=== PATIENT | male | born 1970 | race Caucasian/White ===

== ENCOUNTER 2021-05-02 19:27 | Emergency (ER) | payer OTHER, SELFPAY ==
--- NOTE | ~2021-05-02 | XR_ITS ---
EXAMINATION: XR CHEST CLINICAL INFORMATION: Covid positive COMPARISON: None TECHNIQUE: Frontal view of the chest was obtained. FINDINGS: Cardiac silhouette is normal in size. Lungs are adequately aerated. A few subtle patchy bilateral opacities are noted. No gross lobar consolidation. No pleural effusion or pneumothorax. 5 mm nodular density projecting over the left upper lung possibly represents a vessel on end, pulmonary nodule or osseous abnormality. XR/XR chest 1V IMPRESSION: -A few subtle patchy bilateral opacities are noted, most consistent with provided history of Covid. -Nonspecific 5 mm nodular density projecting over the left upper lung. Follow-up imaging recommended status post treatment to ensure improvement in lung aeration. At this time, reevaluation of the 5 mm left upper lung nodular density can be undertaken.
[2021-05-02 19:41] VITALS: BP 163/94; PULSE 64; RESP 18; TEMP 37.1; O2SAT 98; BMI 36.4
[2021-05-02 20:06] LABS: COVID-19 Test Positive (Negative)
--- NOTE | 2021-05-02 20:45 | ED.URI ---
HPI - URI/Sore Throat General Chief Complaint: Upper Respiratory Symptoms Stated Complaint: Headache/Sore throat Time Seen by Provider: 05/02/21 20:36 Source: patient Mode of arrival: ambulatory Limitations: no limitations History of Present Illness HPI Narrative: Patient history of asthma fully vaccinated against COVID in September has not received a booster dose with complaining of cough with mucopurulent phlegm for last 3 days no fever no chills feels body aches malaise today was getting better but his and daughter also sick test positive for COVID Related Data Previous Rx's Medication Instructions Recorded dexamethasone 6 mg tablet 6 mg PO DAILY #7 tab 05/02/21 (Decadron) Allergies Allergy/AdvReac Type Severity Reaction Status Date / Time Sulfa (Sulfonamide Allergy Nausea and Verified 05/02/21 19:41 Antibiotics) Vomiting Review of Systems Review of Systems: Yes all other systems are reviewed and are negative [facility] Social History Social History Advance Directives: No Physical Exam Vital Signs: Vital Signs: Last Vital Signs Temp 98.8 F 05/02/21 19:41 Pulse 64 05/02/21 19:41 Resp 18 05/02/21 19:41 BP 163/94 H 05/02/21 19:41 Pulse Ox 98 05/02/21 19:41 Body Mass Index 36.4 Appearance: Alert. Oriented X3. No acute distress. Eyes: No pallor/ icterus ENT: Pharynx normal. Oral Mucosa moist Neck: Normal inspection. Neck supple. CVS: Normal heart rate and rhythm. Pulses normal. Respiratory: No respiratory distress. Equal air entry bilateral, no wheezing/rales/rhonchi Abdomen: Soft and nontender. Bowel sounds are present, no mass palpable, no CVA tenderness Skin: Skin warm and dry. Normal skin color. Normal skin turgor. Extremities: No lower extremity edema. No calf tenderness Neuro: Oriented X 3. MDM - URI/Sore Throat Lab Data Attestation: I reviewed the patient's lab results. Labs: Lab Results 05/02/21 Range/Units 19:49 COVID-19 (AKOSUA) Positive A (Negative) COVID-19 Clin Com See Note Discharge Plan Discharge Clinical Impression: COVID-19 Patient Disposition: Home, Self-Care Instructions: COVID-19 (Coronavirus Disease 2019) (ED) Additional Instructions: You have COVID-19 infection self isolate until you get completely better Report to ER if increased shortness of breath Decadron as advised Use your inhaler as advised Prescriptions: New dexamethasone [Decadron] 6 mg tablet 6 mg PO DAILY Qty: 7 RF: 0 Stand Alone Forms: Work/School Release Discharge Date/Time: 05/02/21 21:01
[2021-05-02] MEDS: dexAMETHasone 2 MG TABLET 10 MG PO (20:48)
== END 2021-05-02 21:01 | disposition home or self-care (01) ==
PROVIDERS: Emergency Provider Internal Medicine
DX: U07.1 COVID-19 (principal)
CPT/HCPCS: 36415; 71045; 87635; 99282; 99283; J8540

== ENCOUNTER 2021-10-09 08:39 | Emergency (ER) | payer OTHER, SELFPAY ==
--- NOTE | ~2021-10-09 | XR_ITS ---
EXAMINATION: XR CHEST CLINICAL INFORMATION: Cough COMPARISON: 05/02/2021 TECHNIQUE: Frontal view of the chest was obtained. FINDINGS: Please overlie the chest. The lungs are well expanded. Bronchial wall thickening noted. There is no focal consolidation, edema, or effusion. No pneumothorax. The cardiomediastinal silhouette is within normal limits. No acute osseous abnormality. XR/XR chest 1V IMPRESSION: No dense consolidation. Bronchial wall thickening can be seen with a small airways process such as asthma or atypical/viral infection.
[2021-10-09 08:49] VITALS: BP 155/93; PULSE 70; RESP 18; TEMP 36.8; O2SAT 95; BMI 37.8
--- NOTE | 2021-10-09 08:52 | ECG_ITS ---
Test Reason : SOB Blood Pressure : / mmHG Vent. Rate : 073 BPM Atrial Rate : 073 BPM P-R Int : 140 ms QRS Dur : 096 ms QT Int : 386 ms P-R-T Axes : -08 -09 022 degrees QTc Int : 425 ms Normal sinus rhythm Normal ECG No previous ECGs available Referred By: Jeff Carter Electronically Signed By:TICO BROWNING MD
--- NOTE | 2021-10-09 09:04 | ED.GENADULT ---
HPI - General Adult General Chief complaint: Dyspnea Stated complaint: ASTHMA DIFF BREATHING Time Seen by Provider: 10/09/21 08:46 Source: patient Mode of arrival: ambulatory Limitations: no limitations History of Present Illness HPI narrative: 51-year-old male presents to ED for asthma exacerbation. Patient states history of admissions for asthma in the past but never intubation. Patient states 3 days of coughing green phlegm, chest tightness, and wheezing. Patient states mild improvement with albuterol inhaler. Patient states he ran out of his albuterol inhaler and his primary care provider sent in new albuterol inhaler prescription. Patient states he was also prescribed prednisone, but did not take it because prednisone usually caused him to gain weight. Patient denies any chest pain, leg swelling, calf pain, coughing up blood, recent long travel, recent surgery, pleuritic chest pain, or history of blood clots. Patient also admits to chills and night sweats. Related Data Previous Rx's Medication Instructions Recorded dexamethasone 6 mg tablet 6 mg PO DAILY #7 tab 05/02/21 (Decadron) Allergies Allergy/AdvReac Type Severity Reaction Status Date / Time Sulfa (Sulfonamide Allergy Nausea and Verified 10/09/21 08:55 Antibiotics) Vomiting Review of Systems Review of Systems: Asthma exacerbation. Chest tightness, coughing up green phlegm, night sweats, and chills Yes all other systems are reviewed and are negative [facility] Social History Social History Advance Directives: No Advance Directives Information Provided: No Physical Exam ED Vital Signs: Vital Signs - 24 hr 10/09/21 08:49 10/09/21 09:15 10/09/21 10:33 Temperature 98.2 F Pulse Rate 70 77 Respiratory Rate 18 20 Blood Pressure 155/93 H Pulse Oximetry 95 97 10/09/21 11:54 Temperature Pulse Rate 71 Respiratory Rate 22 H Blood Pressure 141/96 H Pulse Oximetry 95 BMI result Body Mass Index 37.8 Const General: cooperative, healthy appearing, comfortable, no acute distress, well developed, alert, awake and Physically active Orientation/consciousness: patient oriented x3 HENMT Head: Yes normal to inspection, Yes No palpable skull fracture present, Yes normocephalic, Yes atraumatic and No abrasion Eyes General: appearance normal, both eyes and all related structures Neck Neck: Yes normal visual inspection, Yes full ROM, Yes no lymphadenopathy, Yes no meningeal signs, Yes trachea midline, Yes supple, No anterior neck swelling and No tender Chest Chest palpation & inspection: normal inspection of the chest and normal palpation of entire chest wall Resp Effort & Inspection: normal respiratory effort and able to speak in complete sentences Auscultation: wheezes expiratory wheezes and diminished lung sounds Cardio Jugular venous distension: no JVD Heart sounds: S1 normal heart sound present and S2 normal heart sound present GI Inspection: Yes normal to inspection and No abdominal wall ecchymosis Palpation (GI): Soft to palpation, not firm, nontender, no guarding and not rigid General: No CVA tenderness and Yes no CVA tenderness Back/Spine/Pelvis Back: no CVA tenderness, No CVA tenderness and No back tenderness Skin General skin exam: no rashes or lesions noted and elasticity normal Neuro General: patient oriented x3, gait normal, no meningeal signs and CN's II-XI intact bilaterally Cranial nerves: Yes CN's II-XII intact bilaterally Extrem General: Yes normal to inspection and Yes full ROM Psych Appearance: grossly normal, well kempt and not disheveled Course Course Course Narrative: History physical exam indicate asthma, but due to patient's age 51 will do at least 1 troponin and do EKG. Chest x-ray ordered. COVID and SARs ordered. Reevaluation(s) Reevaluation #1: Patient's chest x-ray shows viral reactive disease. Two troponins negative. EKG negative STEMI. Patient's COVID influenza negative. Patient already on azithromycin. Patient already has albuterol inhaler prescribed by his primary care provider. Patient informed to fill the prescription for steroid dose prescribed by his primary care provider. Patient is safe for discharge. Oxygen saturation on ambulation room air was 97% Time: 12:43 Medical Decision Making MDM Narrative Medical decision making narrative: Asthma/bronchitis Lab Data Result diagrams: 10/09/21 09:18 10/09/21 09:12 Labs: Lab Results 10/09/21 10/09/21 10/09/21 Range/Units 09:12 09:12 09:12 WBC (4.8-10.8) X10*3/uL RBC (4.60-5.80) X10*6/uL Hgb (14.0-18.0) g/dl Hct (42.0-52.0) % MCV (80.0-98.0) fL MCH (27.0-33.0) pg MCHC (31.0-36.0) g/dl RDW (11.0-16.0) % Plt Count (160-400) X10*3/uL MPV (9.4-12.4) fL Immature Gran % (Auto) (0.0-0.4) % Neut % (Auto) (45-73) % Lymph % (Auto) (20-40) % [facility] % (Auto) (2-11) % Eos % (Auto) (0-4) % Baso % (Auto) (0-2) % Lymph # (Auto) (1.2-4.9) X10*3/uL [facility] # (Auto) (0.1-1.2) X10*3/uL Eos # (Auto) (0.0-0.4) X10*3/uL Baso # (Auto) (0.0-0.2) X10*3/uL Abs Immat Gran (auto) (0.00-0.03) X10*3/uL Absolute Neuts (auto) (2.0-8.3) x10*3/uL Absolute Nucleated RBC (0.0-0.012) X10*3/uL Nucleated RBC % (auto) (0.0-0.2) /100WBC PT 11.9 (9.9-13.0) SEC INR 1.0 (0.9-1.1) APTT 32.8 (24.1-38.0) SEC Sodium 137 (135-145) mmol/L Potassium 4.1 (3.3-5.1) mmol/L Chloride 105 (96-108) mmol/L Carbon Dioxide 21 L (22-29) mmol/L Anion Gap 15 (12-20) BUN 11 (9-16) mg/dL Creatinine 1.14 (0.5-1.4) mg/dL Estim Creat Clear Calc 94.2 Estimated GFR > 60 Random Glucose 105 (60-115) mg/dL Calcium 9.3 (8.4-10.2) mg/dL Total Bilirubin 0.6 (0.0-1.0) mg/dL AST 15 (5-37) U/L ALT 18 (0-40) U/L Alkaline Phosphatase 76 (39-117) U/L Troponin I High Sens 18.7 (<3.5-35.0) ng/L B-Natriuretic Peptide 22 (<100) pg/mL Total Protein 7.0 (6.5-8.0) g/dL Albumin 4.1 (3.5-5.0) g/dL COVID-19 (AKOSUA) (Negative) COVID-19 Clin Com Influenza Type A (DAISY) (Negative) Influenza Type B (DAISY) (Negative) Influenza A & B Note 10/09/21 10/09/21 10/09/21 Range/Units 09:18 09:18 09:18 WBC 7.2 (4.8-10.8) X10*3/uL RBC 5.56 (4.60-5.80) X10*6/uL Hgb 15.2 (14.0-18.0) g/dl Hct 47.2 (42.0-52.0) % MCV 84.9 (80.0-98.0) fL MCH 27.3 (27.0-33.0) pg MCHC 32.2 (31.0-36.0) g/dl RDW 14.0 (11.0-16.0) % Plt Count 215 (160-400) X10*3/uL MPV 10.7 (9.4-12.4) fL Immature Gran % (Auto) 0.3 (0.0-0.4) % Neut % (Auto) 66.8 (45-73) % Lymph % (Auto) 15.9 L (20-40) % [facility] % (Auto) 13.5 H (2-11) % Eos % (Auto) 2.9 (0-4) % Baso % (Auto) 0.6 (0-2) % Lymph # (Auto) 1.1 L (1.2-4.9) X10*3/uL [facility] # (Auto) 1.0 (0.1-1.2) X10*3/uL Eos # (Auto) 0.2 (0.0-0.4) X10*3/uL Baso # (Auto) 0.0 (0.0-0.2) X10*3/uL Abs Immat Gran (auto) 0.02 (0.00-0.03) X10*3/uL Absolute Neuts (auto) 4.8 (2.0-8.3) x10*3/uL Absolute Nucleated RBC 0.000 (0.0-0.012) X10*3/uL Nucleated RBC % (auto) 0.0 (0.0-0.2) /100WBC PT (9.9-13.0) SEC INR (0.9-1.1) APTT (24.1-38.0) SEC Sodium (135-145) mmol/L Potassium (3.3-5.1) mmol/L Chloride (96-108) mmol/L Carbon Dioxide (22-29) mmol/L Anion Gap (12-20) BUN (9-16) mg/dL Creatinine (0.5-1.4) mg/dL Estim Creat Clear Calc Estimated GFR Random Glucose (60-115) mg/dL Calcium (8.4-10.2) mg/dL Total Bilirubin (0.0-1.0) mg/dL AST (5-37) U/L ALT (0-40) U/L Alkaline Phosphatase (39-117) U/L Troponin I High Sens (<3.5-35.0) ng/L B-Natriuretic Peptide (<100) pg/mL Total Protein (6.5-8.0) g/dL Albumin (3.5-5.0) g/dL COVID-19 (AKOSUA) Negative (Negative) COVID-19 Clin Com See Note Influenza Type A (DAISY) Negative (Negative) Influenza Type B (DAISY) Negative (Negative) Influenza A & B Note See Note 10/09/21 Range/Units 12:00 WBC (4.8-10.8) X10*3/uL RBC (4.60-5.80) X10*6/uL Hgb (14.0-18.0) g/dl Hct (42.0-52.0) % MCV (80.0-98.0) fL MCH (27.0-33.0) pg MCHC (31.0-36.0) g/dl RDW (11.0-16.0) % Plt Count (160-400) X10*3/uL MPV (9.4-12.4) fL Immature Gran % (Auto) (0.0-0.4) % Neut % (Auto) (45-73) % Lymph % (Auto) (20-40) % [facility] % (Auto) (2-11) % Eos % (Auto) (0-4) % Baso % (Auto) (0-2) % Lymph # (Auto) (1.2-4.9) X10*3/uL [facility] # (Auto) (0.1-1.2) X10*3/uL Eos # (Auto) (0.0-0.4) X10*3/uL Baso # (Auto) (0.0-0.2) X10*3/uL Abs Immat Gran (auto) (0.00-0.03) X10*3/uL Absolute Neuts (auto) (2.0-8.3) x10*3/uL Absolute Nucleated RBC (0.0-0.012) X10*3/uL Nucleated RBC % (auto) (0.0-0.2) /100WBC PT (9.9-13.0) SEC INR (0.9-1.1) APTT (24.1-38.0) SEC Sodium (135-145) mmol/L Potassium (3.3-5.1) mmol/L Chloride (96-108) mmol/L Carbon Dioxide (22-29) mmol/L Anion Gap (12-20) BUN (9-16) mg/dL Creatinine (0.5-1.4) mg/dL Estim Creat Clear Calc Estimated GFR Random Glucose (60-115) mg/dL Calcium (8.4-10.2) mg/dL Total Bilirubin (0.0-1.0) mg/dL AST (5-37) U/L ALT (0-40) U/L Alkaline Phosphatase (39-117) U/L Troponin I High Sens 17.3 (<3.5-35.0) ng/L B-Natriuretic Peptide (<100) pg/mL Total Protein (6.5-8.0) g/dL Albumin (3.5-5.0) g/dL COVID-19 (AKOSUA) (Negative) COVID-19 Clin Com Influenza Type A (DAISY) (Negative) Influenza Type B (DAISY) (Negative) Influenza A & B Note ECG Data Interpretation: Normal sinus rhythm. Ventricular rate 73. Pr interval 140. QRS 96 pr QTC 425. Negative STEMI Discharge Plan Discharge Clinical Impression: Asthma with exacerbation, Bronchitis Patient Disposition: Home, Self-Care Instructions: Asthma (DC), Acute Bronchitis (ED) Additional Instructions: Your blood work and EKG came back negative for heart attack. Your COVID influenza swabs came back negative. Chest x-ray came back negative for pneumonia. Please fill the prescription of prednisone prescribed by a primary care provider. Complete azithromycin given to you by your primary care provider and continue using the albuterol inhaler. Return to the ED immediately for any chest pain, shortness of breath, leg swelling, calf pain, coughing up blood, chest pain on inspiration, or any other concerning symptoms. Prescriptions: No Action dexamethasone [Decadron] 6 mg tablet 6 mg PO DAILY Qty: 7 0RF Stand Alone Forms: Work/School Release Interventions: ED Discharge Assessment Last Done: 10/09/21 13:02 Discharge Date/Time: 10/09/21 13:02 Print Language: Khmer
[2021-10-09] MEDS: predniSONE 20 MG TABLET 60 MG PO (09:12)
[2021-10-09] MEDS: guaiFENesin 200 MG/10 ML 10 ML LIQUID PO (09:12)
[2021-10-09 09:15] VITALS: PULSE 77; RESP 20; O2SAT 96
[2021-10-09] MEDS: Albuterol/Iprat 2.5/0.5MG 3 ML AMPUL.NEB INHALE (09:15)
[2021-10-09 09:28] LABS: MANUAL DIFF FLAG NO
[2021-10-09 09:35] LABS: Prothrombin Time 11.9 SEC (9.9-13.0)
[2021-10-09 09:37] LABS: Partial Thromboplastin Time 32.8 SEC (24.1-38.0)
[2021-10-09 09:39] LABS: Basophils Percent Auto 0.6 % (0-2); Eosinophils Absolute Auto 0.2 X10*3/uL (0.0-0.4); Eosinophils Percent Auto 2.9 % (0-4); Hematocrit 47.2 % (42.0-52.0); Hemoglobin 15.2 g/dl (14.0-18.0); Imm Gran Abs Auto 0.02 X10*3/uL (0.00-0.03); Imm Gran Pct Auto 0.3 % (0.0-0.4); Lymphocytes Absolute Auto 1.1 X10*3/uL (1.2-4.9); Lymphocytes Percent Auto 15.9 % (20-40); Mean Corpuscular HGB Conc 32.2 g/dl (31.0-36.0); Mean Corpuscular Hemoglobin 27.3 pg (27.0-33.0); Mean Corpuscular Volume 84.9 fL (80.0-98.0); Mean Platelet Volume 10.7 fL (9.4-12.4); Monocytes Percent Auto 13.5 % (2-11); Neutrophils Absolute Auto 4.8 x10*3/uL (2.0-8.3); Neutrophils Percent Auto 66.8 % (45-73); Platelet Count 215 X10*3/uL (160-400); Red Blood Count 5.56 X10*6/uL (4.60-5.80); White Blood Count 7.2 X10*3/uL (4.8-10.8)
[2021-10-09 09:42] LABS: Alanine Aminotransferase 18 U/L (0-40); Albumin Level 4.1 g/dL (3.5-5.0); Alkaline Phosphatase 76 U/L (39-117); Anion Gap 15 (12-20); Aspartate Amino Transferase 15 U/L (5-37); Bilirubin Total 0.6 mg/dL (0.0-1.0); Blood Urea Nitrogen 11 mg/dL (9-16); Calcium 9.3 mg/dL (8.4-10.2); Carbon Dioxide 21 mmol/L (22-29); Chloride 105 mmol/L (96-108); Creatinine Clr Calc Pharmacy 94.2; Estimated Glomerular Filt Rate > 60; Glucose Random 105 mg/dL (60-115); Potassium 4.1 mmol/L (3.3-5.1); Sodium 137 mmol/L (135-145)
[2021-10-09 09:50] LABS: B Type Natriuretic Peptide 22 pg/mL (<100); Troponin-I High Sensitivity 18.7 ng/L (<3.5-35.0)
[2021-10-09 10:04] LABS: IDNOW Serial# 16C4AD1C; Influenza A Negative (Negative); Influenza B2 Negative (Negative)
[2021-10-09 10:05] LABS: COVID-19 Test Negative (Negative)
[2021-10-09 10:33] VITALS: O2SAT 97
[2021-10-09 11:54] VITALS: BP 141/96; PULSE 71; RESP 22; O2SAT 95
[2021-10-09 12:30] LABS: Troponin-I High Sensitivity 17.3 ng/L (<3.5-35.0)
== END 2021-10-09 13:02 | disposition home or self-care (01) ==
PROVIDERS: Physician Assistant; Emergency Provider Emergency Medicine
DX: J45.901 Unspecified asthma with (acute) exacerbation (principal); R05.9 Cough, unspecified; R06.02 Shortness of breath; Z20.822 Contact with and (suspected) exposure to COVID-19; Z79.899 Other long term (current) drug therapy
CPT/HCPCS: 36415; 71045; 80053; 83880; 84484; 85025; 85610; 85730; 87502; 87635; 93005; 94640; 99284

== ENCOUNTER 2024-03-03 01:12 | Emergency (ER) | payer MEDICAID, SELFPAY ==
[2024-03-03 01:14] VITALS: BP 149/78; PULSE 59; RESP 20; TEMP 36.4; O2SAT 95; BMI 38.7
[2024-03-03 01:45] LABS: IDNOW Serial# 08D9AD1C; Strep A Nucleic Acid Negative (Negative)
--- NOTE | 2024-03-03 02:14 | PC.NURSE ---
pt from lobby, assume care of pt at this time
[2024-03-03 02:39] VITALS: BP 137/74; PULSE 58; RESP 20; TEMP 36.3; O2SAT 96
--- NOTE | 2024-03-03 03:55 | ED_ITS ---
HPI - General Adult General Chief complaint: General Medical Stated complaint: throat pain, trouble breathing Time Seen by Provider: 03/03/24 03:55 History of Present Illness ED Provider: Katherine WAGONER narrative: The patient is a 53-year-old male who has been having problems for about 4 days. He says he started having discomfort and itchiness in his ears. He thought he might also be having some drainage in his ears. He purchase some [id number] ear drops which he has been using. He has a additionally developed some sore throat and a sense of the swelling of his uvula. He was very worried about the swelling of his uvula and came to the emergency room tonight. He has a primary care doctor on [facility] in [place] but he does not know the name of the doctor or the name of the practice. No definite fevers. Related Data Previous Rx's ?Medication ?Instructions ?Recorded dexamethasone 6 mg tablet 6 mg PO DAILY #7 tabs 05/02/21 (Decadron) Allergies Allergy/AdvReac Type Severity Reaction Status Date / Time Sulfa (Sulfonamide Allergy Nausea and Verified 03/03/24 01:22 Antibiotics) Vomiting Review of Systems Review of Systems: Yes all other systems are reviewed and are negative [facility] Social History Social History Smoked in Last 30 Days: No Use of substances other than those prescribed or required for medical reasons: Yes Substance Use Type: Marijuana Advance Directives: No Advance Directives Information Provided: No Physical Exam ED Vital Signs: Vital Signs - 24 hr 03/03/24 01:14 03/03/24 02:39 03/03/24 04:24 Temperature 97.5 F 97.3 F 97.3 F Pulse Rate 59 58 63 Respiratory Rate 20 20 16 Blood Pressure 149/78 H 137/74 150/89 H Pulse Oximetry 95 96 97 Oxygen Delivery Method Room Air Room Air Room Air BMI result Body Mass Index 38.7 Const Other: The patient is awake, alert, pleasant, cooperative. He looks fatigued but not acutely ill or in distress otherwise. HENMT Other: Both tympanic membranes seem whitish and mildly bulging. His uvula is red and mildly edematous. He does not seem to be showing any signs of airway obstruction however. Eyes General: appearance normal, both eyes and all related structures Neck Other: No significant adenopathy Resp Effort & Inspection: normal respiratory effort Auscultation: clear to auscultation bilaterally Cardio Rate: regular rate Rhythm: regular rhythm Heart sounds: S1 normal heart sound present and S2 normal heart sound present GI Other: Abdomen is soft and nontender Skin General skin exam: no rashes or lesions noted Neuro Other: The patient is awake and alert with a normal mental status. Cranial nerves are grossly intact. He moves his extremities normally. His gait is steady. Extrem Other: No peripheral edema Medications Administered Discontinued Medications Generic Name Dose Route Start Last Admin Trade Name Hanyq PRN Reason Stop Dose Admin Amoxicillin/Clavulanate Potassium 875 mg 03/03/24 04:03 03/03/24 04:16 Amoxicillin/Potassium Clav 875 Mg Tablet PO 03/03/24 04:04 875 mg ONCE ONE Administration Ketorolac Tromethamine 30 mg 03/03/24 04:03 03/03/24 04:16 Ketorolac Tromethamine 30 Mg/Ml Vial IM 03/03/24 04:04 30 mg ONCE ONE Administration Prednisone 60 mg 03/03/24 04:03 03/03/24 04:16 Prednisone 20 Mg Tablet PO 03/03/24 04:04 60 mg ONCE ONE Administration Medical Decision Making Medical Decision Making MDM Narrative: The patient presents with bilateral ear discomfort and a physical exam possibly consistent with bilateral otitis media. He also seems to have some uvular edema and redness. He will be started on Augmentin and prednisone. He did not look unstable in any way. He should follow up with his regular provider at the [facility] or return to the ER if worse. Lab Data Labs: Lab Results 03/03/24 Range/Units 01:26 S. pyogenes GrpA DAISY Negative (Negative) Discharge Plan Discharge Clinical Impression: Bilateral otitis media, Uvulitis Patient Disposition: Home, Self-Care Additional Instructions: I think you have an infection in both of your ears for which I have prescribed the antibiotic amoxicillin/clavulanate (also known as Augmentin). Please take this antibiotic 2 times a day. Also, because of the swelling of your uvula, please take the prednisone prescribed. This should be taken once a day. Stay home from work today. My hope is you will be feeling better by Wednesday and can return to work. Also, later today, call your regular doctor's office for a follow up appointment next week so they can make sure that you are doing better. If at any point you are feeling significantly worse please return to the e mergency department. Prescriptions: No Action dexamethasone [Decadron] 6 mg tablet 6 mg PO DAILY Qty: 7 0RF Referrals: [facility] [Provider Group] (Bilateral otitis, uvulitis) Stand Alone Forms: Work/School Release Interventions: ED Discharge Assessment Last Done: 03/03/24 04:24 Discharge Date/Time: 03/03/24 04:25 Print Language: Faroese
[2024-03-03] MEDS: Amoxicillin/Potassium Clav 875 MG TABLET PO (04:16)
[2024-03-03] MEDS: predniSONE 20 MG TABLET 60 MG PO (04:16)
[2024-03-03] MEDS: Ketorolac Tromethamine 30 MG/ML VIAL IM (04:16)
[2024-03-03 04:24] VITALS: BP 150/89; PULSE 63; RESP 16; TEMP 36.3; O2SAT 97
== END 2024-03-03 04:25 | disposition home or self-care (01) ==
PROVIDERS: Emergency Provider Emergency Medicine
DX: K12.2 Cellulitis and abscess of mouth (principal); H66.93 Otitis media, unspecified, bilateral; J02.9 Acute pharyngitis, unspecified
CPT/HCPCS: 87651; 96372; 99284; J1885